=== PATIENT | female | born 1965 ===

== ENCOUNTER 2016-11-09 15:18 | Emergency (ER) | payer OTHER | END 2016-11-09 16:27 | disposition home or self-care (01) | LOC: ER 15:18 | DX: M54.5 Low back pain (principal); Z85.3 Personal history of malignant neoplasm of breast; Z90.12 Acquired absence of left breast and nipple; Z88.0 Allergy status to penicillin; Z88.5 Allergy status to narcotic agent | CPT/HCPCS: 72100; 99283 ==